=== PATIENT | male | born 1995 | race American Indian/Alaskan Native ===

== ENCOUNTER 2019-01-04 12:30 | Emergency (ER) | payer SELFPAY ==
[2019-01-04] MEDS ORDERED: NACL 0.9% 1000 ML 1,000 ML IV ONE (12:38)
--- NOTE | 2019-01-04 12:43 | Emergency Department Report ---
ED Upper Extremity Inj HPI - General Stated Complaint: L SHOULDER DISLOCATED Time Seen by Provider: 01/04/19 12:33 - History of Present Illness Initial Comments: Patient is 23 years old male with history of previous left shoulder dislocation. Patient presented to the emergency room complaining of left shoulder pain and deformity that is started just prior to coming to the ER via EMS. Patient stated that he was raising his left arm and then all of a sudden he started having the pain. Patient denied any other injuries. Patient received 100s micrograms of fentanyl by EMS. Upon arrival to the ER there is an obvious deformity to the left shoulder. Complaint: Injury to:: left, shoulder -: minutes(s) Other Extremity Injury: Shoulder: Left Other Injuries: none Handedness: right Place: home Improves With: immobilization Worsens With: movement of extremity Context: other Associated Symptoms: denies other symptoms - Related Data Previous Rx's Medication Instructions Recorded Last Taken Type Amoxicillin/K Clav Tab [Augmentin 1 tab PO Q12HR #20 tab 08/09/16 Unknown Rx 875 mg] Allergies Allergy/AdvReac Type Severity Reaction Status Date / Time No Known Allergies Allergy Verified 01/04/19 12:58 ED Review of Systems ROS: Stated complaint: L SHOULDER DISLOCATED Other details as noted in HPI Comment: All other systems reviewed and negative Constitutional: denies: chills, fever Respiratory: denies: cough, orthopnea, shortness of breath, SOB with exertion Cardiovascular: denies: chest pain, palpitations Gastrointestinal: denies: abdominal pain, nausea, diarrhea, hematemesis, hematochezia Musculoskeletal: denies: back pain Neurological: denies: headache, weakness ED Past Medical Hx - Past Medical History Additional medical history: Recurrent left Shoulder dislocation - Social History Smoking Status: Never Smoker Substance Use Type: None - Medications Home Medications: Home Medications Medication Instructions Recorded Confirmed Last Taken Type Amoxicillin/K Clav Tab [Augmentin 1 tab PO Q12HR #20 tab 08/09/16 Unknown Rx 875 mg] ED Physical Exam - General Limitations: No Limitations General appearance: alert, in no apparent distress - Head Head exam: Present: atraumatic, normocephalic, normal inspection - Eye Eye exam: Present: normal appearance, PERRL - ENT ENT exam: Present: normal exam, normal orophraynx, mucous membranes moist - Neck Neck exam: Present: normal inspection, full ROM. Absent: tenderness, meningismus, lymphadenopathy, thyromegaly - Respiratory Respiratory exam: Present: normal lung sounds bilaterally - Cardiovascular Cardiovascular Exam: Present: regular rate, normal rhythm, normal heart sounds - GI/Abdominal GI/Abdominal exam: Present: soft, normal bowel sounds. Absent: distended, tenderness, guarding, rebound, rigid, organomegaly, mass, bruit, pulsatile mass, hernia - Expanded Upper Extremity Exam Left Shoulder Exam: Present: tenderness, deformity, dislocation. Absent: full ROM Upper Arm exam: Present: normal inspection, full ROM Elbow exam: Present: normal inspection, full ROM. Absent: tenderness, swelling, abrasion, laceration Forearm Wrist exam: Present: normal inspection, full ROM Hand Wrist exam: Present: normal inspection, full ROM Neuro motor exam: Present: wrist extension intact, thumb opposition intact, thumb IP flexion intact, thumb adduction intact, fingers 2-5 abduction intact Neurosensory exam: Present: 2-point discrimination, radial nerve intact, ulnar nerve intact, median nerve intact Vascular: Present: normal capillary refill - Back Exam Back exam: Present: normal inspection, full ROM - Neurological Exam Neurological exam: Present: alert, oriented X3, CN II-XII intact, normal gait - Psychiatric Psychiatric exam: Present: normal mood - Skin Skin exam: Present: warm, intact, normal color ED Course Vital Signs 01/04/19 01/04/19 01/04/19 12:36 13:21 13:29 Temperature 98 F Temperature [ Post-Procedure] Temperature [ 98 F 98 F Pre-Procedure] Pulse Rate 68 Pulse Rate [ Post-Procedure] Pulse Rate [Pre 65 72 -Procedure] Respiratory 16 Rate Respiratory Rate [Post- Procedure] Respiratory 16 16 Rate [Pre- Procedure] Blood Pressure 129/87 Blood Pressure [Left] Blood Pressure [Post-Procedure ] Blood Pressure 167/89 167/89 [Pre-Procedure] O2 Sat by Pulse 100 Oximetry O2 Sat by Pulse Oximetry [Post -Procedure] O2 Sat by Pulse 100 Oximetry [Pre- Procedure] 01/04/19 01/04/19 13:32 14:08 Temperature 98.1 F Temperature [ 98 F Post-Procedure] Temperature [ Pre-Procedure] Pulse Rate 80 Pulse Rate [ 94 H Post-Procedure] Pulse Rate [Pre -Procedure] Respiratory 16 Rate Respiratory 16 Rate [Post- Procedure] Respiratory Rate [Pre- Procedure] Blood Pressure Blood Pressure 139/77 [Left] Blood Pressure 151/104 [Post-Procedure ] Blood Pressure [Pre-Procedure] O2 Sat by Pulse 100 Oximetry O2 Sat by Pulse 100 Oximetry [Post -Procedure] O2 Sat by Pulse Oximetry [Pre- Procedure] - Reevaluation(s) Reevaluation #1: 01/04/19 14:37 Patient evaluated by me multiple times before and after the moderate sedation. Patient now is alert, oriented 3. Vital signs stable as an oxygen saturation of 100% on room air. - Moderate Sedation Indications: fracture/dislocation redu ASA Class: II Mallampati Airway Score: 2 Preparation: monitor tech applied, pulse oximeter, capnometry used, supplemental O2 applied, reversal agents at bedside, suction/airway equipment at bedside, IV secured Fentanyl: IV Midazolam: IV Ketamine: IV Complications: none Patient Tolerated Procedure: well, no complications - Orthopedic Joint Reduction Joint #1 Consent Obtained: written consent Time Out Performed: Yes Side: left Joint Reduction Location: shoulder Analgesia: moderate sedation Shoulder Technique Used (if applicable): traction/counter-traction Post-Reduction Neuro Exam: intact Post-Reduction Vascular Exam: intact Post Reduction X-Ray Obtained: Yes Post Reduction X-Ray Results: reduced Splint Applied: Yes Patient Tolerated Procedure: well, no complications Critical Care Time: Yes Critical care time in (mins) excluding proc time.: 30 Critical care attestation.: If time is entered above; I have spent that time in minutes in the direct care of this critically ill patient, excluding procedure time. ED Disposition Clinical Impression: Recurrent dislocation, left shoulder Disposition: DC-01 TO HOME OR SELFCARE Is pt being admited?: No Condition: Stable Instructions: Shoulder Dislocation (ED), Moderate Sedation (ED) Referrals: ARACELI GOODWIN MD [Staff Physician] - 3-5 Days
[2019-01-04] MEDS ORDERED: VERSED IV NR (13:00)
[2019-01-04] MEDS ORDERED: KETAMINE HCL IV ONE ×2 (13:36→14:00)
--- NOTE | 2019-01-04 13:41 | XRay Report ---
FINAL REPORT EXAM: XR SHOULDER 2+V LT HISTORY: left shoulder dislocation TECHNIQUE: Three views of the left shoulder PRIORS: 12/28/2015. FINDINGS: No fracture. There is acute anterior dislocation of the left glenohumeral joint. Normal mineralization. No soft tissue abnormality. IMPRESSION: Acute left glenohumeral joint dislocation.
[2019-01-04] MEDS ORDERED: KETALAR IV ONE (13:43)
[2019-01-04 14:10] VITALS: BP 139/77
--- NOTE | 2019-01-04 14:24 | XRay Report ---
FINAL REPORT EXAM: XR SHOULDER 1V LT HISTORY: postreduction TECHNIQUE: Frontal view of the left shoulder. PRIORS: Earlier today. FINDINGS: No fracture. The left glenohumeral joint dislocation appears to have been relocated. Normal mineralization. No soft tissue abnormality. IMPRESSION: Relocation of the left glenohumeral joint dislocation.
== END 2019-01-04 15:22 | disposition home or self-care (01) ==
LOC: ED 12:30
DX: M24.412 Recurrent dislocation, left shoulder (principal)
CPT/HCPCS: 23650; 73020; 73030; 96374; 96375; 99291; J2250; J7030